=== PATIENT | male | born 1995 | race African-American/Black ===

== ENCOUNTER 2025-07-21 08:31 | Emergency (ER) | payer OTHER ==
[~2025-07-21] VITALS: Ht 177.8 cm; Wt 82.0 kg
[2025-07-21 08:37] VITALS: TEMP 98; O2SAT 100
[2025-07-21] MEDS ORDERED: LIDOCAINE HCL/EPINEPHRINE 1%-EPI 1:100,000 20ML VIAL INFIL ONE (10:45)
[2025-07-21] MEDS: SODIUM CHLORIDE 0.9% 1,000 ML IV ONE (11:28)
[2025-07-21] MEDS: KETOROLAC 30MG/ML VIAL IV ONE (11:28)
[2025-07-21] MEDS: TETANUS, DIPHTHERIA, PERTUSSIS VAC/PF 0.5ML (>10YR OLD) IM ONE (11:29)
[2025-07-21] MEDS: CEFAZOLIN 1000MG PREMIX 50 ML IV ONE (11:29)
[2025-07-21] MEDS: ACETAMINOPHEN 500MG TABLET PO ONE (11:29)
[2025-07-21] MEDS ORDERED: AMOX50SU15 MT (12:18)
[2025-07-21] MEDS ORDERED: IBUP-2030 MT (12:18)
[2025-07-21] MEDS ORDERED: TOPUD MT (12:18)
[2025-07-21 12:55] VITALS: BP 130/82; PULSE 84; RESP 14; O2SAT 100
== END 2025-07-21 13:05 | disposition home or self-care (01) ==
LOC: ER 08:31
DX: S61.451A Open bite of right hand, initial encounter (principal); W54.0XXA Bitten by dog, initial encounter; Y93.89 Activity, other specified; Y92.89 Other specified places as the place of occurrence of the external cause; Y99.8 Other external cause status
CPT/HCPCS: 99284; 96365; 96375; 73110; 90715; 12002; 90471; J1885; J0690; J2004; J7030; 96372

== ENCOUNTER 2025-07-23 15:34 | Emergency (ER) | payer OTHER ==
[~2025-07-23] VITALS: Ht 177.8 cm; Wt 91.0 kg
[~2025-07-23 15:34] MED LIST: AMOX50SU15 MT; IBUP-2030 MT; TOPUD MT
[2025-07-23 15:49] VITALS: O2SAT 100
[2025-07-23 17:02] VITALS: BP 125/75; PULSE 70; RESP 16; TEMP 36.9; O2SAT 100
== END 2025-07-23 17:07 | disposition home or self-care (01) ==
LOC: ER 15:34
DX: S61.419D Laceration without foreign body of unspecified hand, subsequent encounter (principal); X58.XXXD Exposure to other specified factors, subsequent encounter
CPT/HCPCS: 99282